=== PATIENT | male | born 1990 | race African-American/Black ===

== ENCOUNTER 2018-04-18 18:50 | Emergency (ER) | payer BC, SELFPAY ==
[2018-04-18] MEDS ORDERED: TETANUS & DIPHTHERIA TOX,ADULT 0.5 ML VIAL ONE (19:58)
--- NOTE | 2018-04-18 20:03 | EDPHYS ---
Physician Documentation [facility] Name: Tao Stephenson Jr Age: 27 yrs Sex: Male : 1990 Arrival Date: 04/18/2018 Time: 18:52 Bed Waiting Private MD: ED Physician Emre Gallegos HPI: 04/18 19:58 This 27 yrs old Black Male presents to ER via Ambulatory with complaints of BIT BY A ps1 PIG. 19:58 patient was bit by household pig, pet. Provoked while at dinner eating. bit the medial ps1 aspect of right leg. Cleaned. Pain mild to moderate. Has 1cm laceration to inner leg. Tetanus OOD. . Historical: - Allergies: 18:57 No Known Allergies; hj - Home Meds: 18:57 None [Active]; hj - PMHx: 18:57 None; hj - PSHx: 18:57 None; hj - Immunization history:: Adult Immunizations up to date. - Social history:: Smoking status: Patient/guardian denies using tobacco, Patient uses alcohol, weekly. - Ebola Screening: : Patient negative for fever greater than or equal to 101.5 degrees Fahrenheit, and additional compatible Ebola Virus Disease symptoms Patient denies exposure to infectious person Patient denies travel to an Ebola-affected area in the 21 days before illness onset. ROS: 19:58 Constitutional: Negative for fever, chills, and weight loss, Eyes: Negative for injury, ps1 pain, redness, and discharge, Cardiovascular: Negative for chest pain, palpitations, and edema, Respiratory: Negative for shortness of breath, cough, wheezing, and pleuritic chest pain, Abdomen/GI: Negative for abdominal pain, nausea, vomiting, diarrhea, and constipation, Skin: Negative for injury, rash, and discoloration, Neuro: Negative for headache, weakness, numbness, tingling, and seizure. 19:58 Neck: Positive for pseudofollicar barbae. . 19:58 MS/extremity: Positive for laceration. Exam: 19:58 Constitutional: This is a well developed, well nourished patient who is awake, alert, ps1 and in no acute distress. Head/Face: Normocephalic, atraumatic. Eyes: Pupils equal round and reactive to light, extra-ocular motions intact. Lids and lashes normal. Conjunctiva and sclera are non-icteric and not injected. 19:58 Chest/axilla: Normal chest wall appearance and motion. Nontender with no deformity. No lesions are appreciated. Cardiovascular: Regular rate and rhythm. No gallops, murmurs, or rubs. Normal PMI, no JVD. No pulse deficits. Respiratory: Lungs have equal breath sounds bilaterally, clear to auscultation and percussion. No rales, rhonchi or wheezes noted. No increased work of breathing, no retractions or nasal flaring. Abdomen/GI: Soft, non-tender, with normal bowel sounds. No distension or tympany. No guarding or rebound. No evidence of tenderness throughout. 19:58 ENT: pseudofollicular barbae. 19:58 Skin: injury, laceration(s), that can be described as linear, without bleeding. Vital Signs: 18:57 BP 121 / 78; Pulse 63; Resp 18; Temp 98.6(O); Pulse Ox 100% on R/A; Weight 77.11 kg; hj Height 5 ft. 9 in. (175.26 cm); Pain 7/10; 18:57 Body Mass Index 25.10 (77.11 kg, 175.26 cm) hj MDM: 19:58 Data reviewed: vital signs, nurses notes, and as a result, I will discharge patient. ps1 Counseling: I had a detailed discussion with the patient and/or guardian regarding: the historical points, exam findings, and any diagnostic results supporting the discharge/admit diagnosis, the need for outpatient follow up. Special discussion: I discussed with the patient/guardian in detail that at this point there is no indication for admission to the hospital. It is understood, however, that if the symptoms persist or worsen the patient needs to return immediately for re-evaluation. I discussed in detail with the patient the higher chance of wound infection based on his presenting history. 20:03 Patient medically screened. 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 Exp: aa1 06/08/2020. Lot #: [id number]. } Route: IM; Site: right deltoid; 20:05 Follow up: Response: No adverse reaction aa1 Disposition: 04/18/18 20:03 Discharged to Home. 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 - Condition is Stable. - Discharge Instructions: Animal Bite, [id number], Ingrown Hair. - Prescriptions for Augmentin 875- 125 mg Oral Tablet - take 1 tablet by ORAL route every 12 hours for 10 days; 20 tablet. - Work release form, Medication Reconciliation Form, Thank You Letter, Antibiotic Education, Prescription Opioid Use form. - Follow up: Private Physician; When: As needed; Reason: Recheck today's complaints, Re-evaluation by your physician. Follow up: Emergency Department; When: As needed; Reason: Fever > 102 F, Worsening of condition. - Problem is new. - Symptoms are unchanged. Signatures: Danika Salazar RN RN aa1 Antony Pacheco RN RN hj Emre Gallegos MD MD ps1 Corrections: (The following items were deleted from the chart) 20:06 20:03 04/18/2018 20:03 Discharged to Home. Impression: Pseudofolliculitis barbae; aa1 Bitten by other mammals. Condition is Stable. Forms are Work release form, Medication Reconciliation Form, Thank You Letter, Antibiotic Education, Prescription Opioid Use. Follow up: Private Physician; When: As needed; Reason: Recheck today's complaints, Re-evaluation by your physician. Follow up: Emergency Department; When: As needed; Reason: Fever > 102 F, Worsening of condition. Problem is new. Symptoms are unchanged. ps1
--- NOTE | 2018-04-18 20:03 | ER ---
Nurse's Notes [facility] Name: Tao Stephenson Jr Age: 27 yrs Sex: Male : 1990 Arrival Date: 04/18/2018 Time: 18:52 Bed Waiting Private MD: Diagnosis: Pseudofolliculitis barbae;Bitten by other mammals Presentation: 04/18 18:55 Presenting complaint: Patient states: 2 hours ago, i was bitten by my friends pet pig hj at R lower and L lower leg; it was juliano deep;. Transition of care: patient was not received from another setting of care. Onset of symptoms was April 18, 2018. Risk Assessment: Do you want to hurt yourself or someone else? Patient reports no desire to harm self or others. Initial Sepsis Screen: Does the patient meet any 2 criteria? No. Patient's initial sepsis screen is negative. Does the patient have a suspected source of infection? No. Patient's initial sepsis screen is negative. Care prior to arrival: None. 18:55 Method Of Arrival: Ambulatory 18:55 Acuity: THEE 4 hj Triage Assessment: 18:57 General: Appears in no apparent distress. uncomfortable, Behavior is calm, cooperative, hj appropriate for age. Pain: Complains of pain in right leg and left leg. Historical: - Allergies: 18:57 No Known Allergies; hj - Home Meds: 18:57 None [Active]; hj - PMHx: 18:57 None; hj - PSHx: 18:57 None; hj - Immunization history:: Adult Immunizations up to date. - Social history:: Smoking status: Patient/guardian denies using tobacco, Patient uses alcohol, weekly. - Ebola Screening: : Patient negative for fever greater than or equal to 101.5 degrees Fahrenheit, and additional compatible Ebola Virus Disease symptoms Patient denies exposure to infectious person Patient denies travel to an Ebola-affected area in the 21 days before illness onset. Screenin:57 Abuse screen: Denies threats or abuse. Denies injuries from another. Nutritional hj screening: No deficits noted. Tuberculosis screening: No symptoms or risk factors identified. Fall Risk None identified. Assessment: 19:51 General: Appears in no apparent distress. comfortable, Behavior is calm, cooperative, aa1 appropriate for age. Pain: Complains of pain in medial aspect of right calf. Neuro: Level of Consciousness is awake, alert, obeys commands, Oriented to person, place, time, situation, Moves all extremities. Full function Gait is steady. Respiratory: Airway is patent Respiratory effort is even, unlabored, Respiratory pattern is regular, symmetrical. GI: No signs and/or symptoms were reported involving the gastrointestinal system. : No signs and/or symptoms were reported regarding the genitourinary system. EENT: No signs and/or symptoms were reported regarding the EENT system. Derm: Skin is intact, is healthy with good turgor, Skin is pink, warm \T\ dry. Musculoskeletal: Circulation, motion, and sensation intact. Capillary refill < 3 seconds, Range of motion: intact in all extremities. Injury Description: Abrasion sustained to left bailey Bite sustained to medial aspect of right calf caused by pig is from animal. Vital Signs: 18:57 BP 121 / 78; Pulse 63; Resp 18; Temp 98.6(O); Pulse Ox 100% on R/A; Weight 77.11 kg; hj Height 5 ft. 9 in. (175.26 cm); Pain 7/10; 18:57 Body Mass Index 25.10 (77.11 kg, 175.26 cm) ED Course: 18:52 Patient arrived in ED. rg4 18:56 Triage completed. hj 18:57 Arm band placed on left wrist. 18:57 Patient has correct armband on for positive identification. Bed in low position. Call light in reach. Side rails up X 1. 19:51 No provider procedures requiring assistance completed. Patient did not have IV access aa1 during this emergency room visit. Wound care: to puncture located on medial aspect of right calf was dressed with band aid. 19:56 Emre Gallegos MD is Attending Physician. ps1 20:05 Danika Salazar RN is Primary Nurse. 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 Exp: aa1 06/08/2020. Lot #: [id number]. } Route: IM; Site: right deltoid; 20:05 Follow up: Response: No adverse reaction aa1 Outcome: 20:03 Discharge ordered by . ps1 20:05 Discharged to home ambulatory. aa1 20:05 Condition: good 20:05 Discharge instructions given to patient, Instructed on discharge instructions, follow up and referral plans. medication usage, wound care, Demonstrated understanding of instructions, follow-up care, medications, wound care. 20:05 Prescriptions given X 1. 20:06 Patient left the ED. aa1 Signatures: Danika Salazar RN RN aa1 Antony Pacheco RN RN hj Garcia, Rubi rg4 Emre Gallegos MD MD ps1
== END 2018-04-18 20:06 | disposition home or self-care (01) ==
LOC: ER 18:50
DX: L73.1 Pseudofolliculitis barbae (principal); W55.41XA Bitten by pig, initial encounter; Y93.89 Activity, other specified; Y92.009 Unspecified place in unspecified non-institutional (private) residence as the place of occurrence of the external cause; Z23 Encounter for immunization
CPT/HCPCS: 90714; 99283